=== PATIENT | male | born 1950 | race Caucasian/White ===

== ENCOUNTER → 2023-02-20 | Outpatient (CLI) | payer OTHER ==
[~2023-02-20] MED LIST: IOHEXOL-350 75 ML VIAL IV ONE
== END | disposition home or self-care (01) ==
LOC: RAH 10:34
PROVIDERS: ATTEND Internal Medicine Gastroenterology
DX: N28.1 Cyst of kidney, acquired (principal); R10.32 Left lower quadrant pain; K57.90 Diverticulosis of intestine, part unspecified, without perforation or abscess without bleeding
CPT/HCPCS: 74178; Q9967

== ENCOUNTER → 2024-01-29 | Outpatient (CLI) | payer OTHER | END | disposition home or self-care (01) | LOC: RAH 13:30 | PROVIDERS: ATTEND Internal Medicine Cardiovascular Disease | DX: Z13.6 Encounter for screening for cardiovascular disorders (principal) | CPT/HCPCS: 75571 ==